=== PATIENT | male | born 1965 | race Caucasian/White ===

== ENCOUNTER 2017-10-17 09:01 | Inpatient (IN) | payer OTHER ==
[2017-10-17 10:17] VITALS: BMI 23.3
--- NOTE | 2017-10-17 11:57 | HP ---
COWS - Scale Resting Pulse: 0= [place] 80 or Below Sweatin=Flushed/Facial Moisture Restless Observation: 1= Difficult to Sit Still Pupil Size: 0= Normal to Room Light Bone or Joint Aches: 2= Severe Diffuse Aches Runny Nose/ Eye Tearin= Runny Nose/Eyes GI Upset > 30mins: 1= Stomach Cramp Tremor Observation: 2= Slight Tremor Visible Yawning Observation: 2= >3x During Session Anxiety or Irritability: 2=Irritable/Anxious Goose Flesh Skin: 3=Piloerection COWS Score: 17 Admission ROS S - HPI Chief Complaint: I need to stop using thang. Allergies/Adverse Reactions: Allergies Allergy/AdvReac Type Severity Reaction Status Date / Time SEAFOOD Allergy Severe Itching Uncoded 10/17/17 10:06 NKDA Allergy Uncoded 10/17/17 10:06 History of Present Illness: pt is a 52yr old male with a history of heroin dependence seeking detox for treatment. Exam Limitations: No Limitations - Ebola screening Have you traveled outside of the country in the last 21 days: No Have you had contact with anyone from an Ebola affected area: No Have you been sick,other than usual withdrawal symptoms: No Do you have a fever: No - Review of Systems Constitutional: Chills, Diaphoresis, Loss of Appetite, Night Sweats, Changes in sleep, Unintentional Wgt. Loss EENT: reports: Tearing, Nose Congestion Respiratory: reports: No Symptoms reported Cardiac: reports: No Symptoms Reported GI: reports: Constipated, Diarrhea, Poor Appetite, Poor Fluid Intake : reports: No Symptoms Reported Musculoskeletal: reports: No Symptoms Reported Integumentary: reports: Flushing Neuro: reports: Tingling, Tremors Endocrine: reports: No Symptoms Reported, Excessive Sweating, Flushing Hematology: reports: No Symptoms Reported Psychiatric: reports: Judgement Intact, Mood/Affect Appropiate, Orientated x3, Agitated, Anxious Other Systems: Reviewed and Negative Patient History - Patient Medical History Hx Anemia: No Hx Asthma: No Hx Chronic Obstructive Pulmonary Disease (COPD): No Hx Cancer: No Hx Cardiac Disorders: No Hx Congestive Heart Failure: No Hx Hypertension: No Hx Hypercholesterolemia: No Hx Pacemaker: No HX Cerebrovascular Accident: No Hx Seizures: No Hx Dementia: No Hx Diabetes: No Hx Gastrointestinal Disorders: No Hx Liver Disease: Yes Hx Genitourinary Disorders: No Hx Sexually Transmitted Disorders: No Hx Renal Disease (ESRD): No Hx Thyroid Disease: No Hx Human Immunodeficiency Virus (HIV): No (denies) Hx Hepatitis C: Yes Hx Depression: No Hx Suicide Attempt: No (denies) Hx Bipolar Disorder: No Hx Schizophrenia: No - Patient Surgical History Past Surgical History: Yes Hx Neurologic Surgery: No Hx Cataract Extraction: No Hx Cardiac Surgery: No Hx Lung Surgery: No Hx Breast Surgery: No Hx Breast Biopsy: No Hx Abdominal Surgery: Yes (bilateral inguinal hernia repair) Hx Appendectomy: No Hx Cholecystectomy: No Hx Genitourinary Surgery: No Hx Section: No Hx Orthopedic Surgery: No Other Surgical History: HERNIA REPAIR-2010 Anesthesia Reaction: No - PPD History Previous Implant?: Yes Documented Results: Negative w/o proof Implanted On Prior R Admission?: Yes PPD to be Administered?: No - Reproductive History Patient is a Female of Child Bearing Age (11 -55 yrs old): No - Smoking Cessation Smoking history: Current every day smoker Have you smoked in the past 12 months: Yes Aproximately how many cigarettes per day: 20 Cigars Per Day: 20 Hx Chewing Tobacco Use: No Initiated information on smoking cessation: Yes 'Breaking Loose' booklet given: 10/17/17 - Substance & Tx. History Hx Alcohol Use: No Hx Substance Use: Yes Substance Use Type: Cocaine, Heroin, Tranquilizers Hx Substance Use Treatment: Yes (last detox [facility] 2012) - Substances Abused Heroin Route: Injection Frequency: Daily Amount used: 10-20 bags Age of first use: 28 Date of Last Use: 10/17/17 Crack Route: Smoking Frequency: Daily Amount used: $50-100 Age of first use: 23 Date of Last Use: 10/17/17 Klonopin Route: Oral Frequency: 1-3 times last 30 days Amount used: 2 mg. Age of first use: 32 Date of Last Use: 10/12/17 Family Disease History - Family Disease History Family Disease History: Diabetes: Father (HTN,CVA,CAD S/P CABG,DEMENTIA), Heart Disease: Father, Other: Father Admission Physical Exam BHS - Vital Signs Vital Signs: Vital Signs - 24 hr 10/17/17 10:15 Temperature 95.6 F L Pulse Rate 50 L Respiratory 20 Rate Blood Pressure 127/67 - Physical General Appearance: Yes: Appropriately Dressed, Moderate Distress, Tremorous, Irritable, Sweating, Anxious HEENTM: Yes: Hearing grossly Normal, Nasal Congestion, Rhinorrhea Respiratory: Yes: Lungs Clear, Normal Breath Sounds, No Respiratory Distress Neck: Yes: No masses,lesions,Nodules Breast: Yes: Within Normal Limits Cardiology: Yes: Regular Rhythm, Regular Rate, S1, S2 Abdominal: Yes: Normal Bowel Sounds, Non Tender, Soft Genitourinary: Yes: Within Normal Limits Back: Yes: Normal Inspection Musculoskeletal: Yes: full range of Motion Extremities: Yes: Normal Capillary Refill, Normal Inspection, Tremors Neurological: Yes: Fully Oriented, Alert, Normal Response, Depressed Affect Integumentary: Yes: Diaphoresis Lymphatic: Yes: Within Normal Limits - Diagnostic (1) Opioid dependence with withdrawal Current Visit: Yes Status: Chronic (2) Cocaine dependence Current Visit: Yes Status: Chronic (3) Hepatitis C carrier Current Visit: Yes Status: Chronic (4) Nicotine dependence Current Visit: Yes Status: Chronic Qualifiers: Nicotine product type: cigarettes Substance use status: uncomplicated Qualified Code(s): F17.210 - Nicotine dependence, cigarettes, uncomplicated Cleared for Admission [facility] - Detox or Rehab [facility] Level of Care: Medically Managed Detox Regimen/Protocol: Methadone [facility] Breath Alcohol Content Breath Alcohol Content: 0 Urine Drug Screen - Results Drug Screen Negative: No Urine Drug Screen Results: YOANDY-Cocaine, OPI-Opiates, MTD-Methadone, OXY- Oxycodone
[2017-10-17] MEDS ORDERED: MAGNESIUM HYDROX 2400MG/30ML ORAL SUSPENSION 30 ML CUP PO PRN (11:59)
[2017-10-17] MEDS ORDERED: guaiFENesin/D-METHORPHAN HB 10 ML UNIT-DOSE CUPS PO PRN (11:59)
[2017-10-17] MEDS ORDERED: ACETAMINOPHEN 325 MG TABLET (FP) PO PRN (11:59)
[2017-10-17] MEDS ORDERED: NICOTINE POLACRILEX 4 MG GUM BUC PRN (11:59)
[2017-10-17] MEDS ORDERED: IBUPROFEN 400 MG TABLET (FP) PO PRN (11:59)
[2017-10-17] MEDS ORDERED: MAGNESIUM CITRATE 300 ML BOTTLE PO PRN (11:59)
[2017-10-17] MEDS ORDERED: MAG HYDROX/AL HYDROX/SIMETH 30 ML UNIT-DOSE CUP PO PRN (11:59)
[2017-10-17] MEDS ORDERED: MENTHOL/PHENOL 1 EACH UD MM PRN (11:59)
[2017-10-17] MEDS ORDERED: P-EPHED 60MG/TRIPROLIDI 2.5MG TABLET PO PRN (11:59)
[2017-10-17] MEDS ORDERED: METHADONE HCL 10 MG TABLET (FOR DETOX USE ONLY) PO ONE ×2 (11:59→23:00)
[2017-10-17] MEDS ORDERED: hydrOXYzine PAMOATE 50 MG CAPSULE (FP) PO PRN (11:59)
[2017-10-17] MEDS ORDERED: LOPERAMIDE HCL 2 MG CAPSULE PO PRN (11:59)
[2017-10-17] MEDS: diazePAM 5 MG TABLET PO PRN ×2 (13:26→22:29)
--- NOTE | 2017-10-17 15:46 | EKG ---
Test Reason : Blood Pressure : / mmHG Vent. Rate : 047 BPM Atrial Rate : 047 BPM P-R Int : 142 ms QRS Dur : 094 ms QT Int : 480 ms P-R-T Axes : 074 062 066 degrees QTc Int : 424 ms SINUS BRADYCARDIA WITH SINUS ARRHYTHMIA OTHERWISE NORMAL ECG NO PREVIOUS ECGS AVAILABLE Confirmed by ASHLIE MARQUEZ, BRUNO ([id number]) on 10/17/2017 3:46:21 PM Referred By: Confirmed By:BRUNO DAILEY MD
[2017-10-17 17:10] LABS: URINE APPEARANCE CLEAR; URINE BILIRUBIN NEGATIVE (NEGATIVE); URINE BLOOD NEGATIVE (NEGATIVE); URINE COLOR LTYELLOW; URINE GLUCOSE (UA) NEGATIVE (NEGATIVE); URINE KETONE NEGATIVE (NEGATIVE); URINE LEUK ESTERASE NEGATIVE (NEGATIVE); URINE NITRITE NEGATIVE (NEGATIVE); URINE PROTEIN NEGATIVE (NEGATIVE); URINE UROBILINOGEN NEGATIVE mg/dL (0.2-1.0)
[2017-10-17] MEDS: THIAMINE HCL 100 MG TABLET (FP) PO SCH (22:26)
[2017-10-18] MEDS ORDERED: METHADONE HCL 10 MG TABLET (FOR DETOX USE ONLY) PO ONE (10:00)
[2017-10-18 10:24] LABS: CHLORIDE 106 mmol/L (98-107); POTASSIUM 4.3 mmol/L (3.5-5.1); SODIUM 140 mmol/L (136-145)
[2017-10-18 10:29] LABS: HEMATOCRIT 37.4 % (35.4-49); MCH 27.9 pg (25.7-33.7); MCHC 32.1 g/dl (32.0-35.9); MEAN CELL VOLUME 86.8 fl (80-96); MEAN PLT VOLUME 9.3 fl (7.5-11.1); PLATELET COUNT 227 K/MM3 (134-434); RBC 4.31 M/mm3 (4.00-5.60); RDW 14.5 % (11.9-15.9); WHITE BLOOD COUNT 6.3 K/mm3 (4.0-10.0)
[2017-10-18] MEDS: PRENATAL VITAMINS W/ FOLIC ACID TABLET (FP) PO SCH (10:32)
[2017-10-18] MEDS: NICOTINE 21 MG/24 HOURS TOPICAL PATCH TD SCH (10:32)
[2017-10-18 10:35] LABS: ALBUMIN 3.6 g/dl (3.4-5.0); ALK PHOS 67 U/L (45-117); ANION GAP 4 (8-16); BILIRUBIN,TOTAL 0.3 mg/dL (0.2-1.0); BLOOD UREA NITROGEN 13 mg/dL (7-18); CALCIUM 8.4 mg/dL (8.5-10.1); CO2 30 mmol/L (21-32); CREATININE 0.7 mg/dL (0.7-1.3); GLUCOSE,RANDOM 83 mg/dL (74-106); SGOT/AST 18 U/L (15-37); SGPT/ALT 19 U/L (12-78); TOT PROT 7.2 g/dl (6.4-8.2)
[2017-10-18] MEDS: diazePAM 5 MG TABLET PO PRN ×3 (10:35→22:26)
--- NOTE | 2017-10-18 12:21 | PN ---
BHS COWS - Scale Resting Pulse: 0= [place] 80 or Below Sweatin= Chills/Flushing Restless Observation: 3= Extraneous Movement Pupil Size: 2= Moderately Dilated Bone or Joint Aches: 4=Acute Joint/Muscle Pain Runny Nose/ Eye Tearin= Nasal Congestion GI Upset > 30mins: 1= Stomach Cramp Tremor Observation of Outstretched Hands: 2= Slight Tremor Visible Yawning Observation: 1= 1-2x During Session Anxiety or Irritability: 2=Irritable/Anxious Goose Flesh Skin: 0=Smooth Skin COWS Score: 17 BHS Progress Note (SOAP) Subjective: ANXIETY,SWEATS,IRRITABILITY, INTERMITTENT SLEEP. Objective: 10/18/17 12:25 Vital Signs Temperature 96.2 F L 10/18/17 09:33 Pulse Rate 58 L 10/18/17 09:33 Respiratory Rate 18 10/18/17 09:33 Blood Pressure 142/90 10/18/17 09:33 O2 Sat by Pulse Oximetry (%) Laboratory Last Values WBC 6.3 K/mm3 (4.0-10.0) 10/18/17 06:00 RBC 4.31 M/mm3 (4.00-5.60) 10/18/17 06:00 Hgb 12.0 GM/dL (11.7-16.9) 10/18/17 06:00 Hct 37.4 % (35.4-49) 10/18/17 06:00 MCV 86.8 fl (80-96) 10/18/17 06:00 MCH 27.9 pg (25.7-33.7) 10/18/17 06:00 MCHC 32.1 g/dl (32.0-35.9) 10/18/17 06:00 RDW 14.5 % (11.9-15.9) 10/18/17 06:00 Plt Count 227 K/MM3 (134-434) D 10/18/17 06:00 MPV 9.3 fl (7.5-11.1) 10/18/17 06:00 Sodium 140 mmol/L (136-145) 10/18/17 06:00 Potassium 4.3 mmol/L (3.5-5.1) 10/18/17 06:00 Chloride 106 mmol/L (98-107) 10/18/17 06:00 Carbon Dioxide 30 mmol/L (21-32) 10/18/17 06:00 Anion Gap 4 (8-16) L 10/18/17 06:00 BUN 13 mg/dL (7-18) 10/18/17 06:00 Creatinine 0.7 mg/dL (0.7-1.3) 10/18/17 06:00 Creat Clearance w eGFR > 60 (>60) 10/18/17 06:00 Random Glucose 83 mg/dL (74-106) 10/18/17 06:00 Calcium 8.4 mg/dL (8.5-10.1) L 10/18/17 06:00 Total Bilirubin 0.3 mg/dL (0.2-1.0) D 10/18/17 06:00 AST 18 U/L (15-37) 10/18/17 06:00 ALT 19 U/L (12-78) D 10/18/17 06:00 Alkaline Phosphatase 67 U/L (45-117) 10/18/17 06:00 Total Protein 7.2 g/dl (6.4-8.2) 10/18/17 06:00 Albumin 3.6 g/dl (3.4-5.0) 10/18/17 06:00 Urine Color Ltyellow 10/17/17 15:50 Urine Appearance Clear 10/17/17 15:50 Urine pH 5.0 (5.0-8.0) 10/17/17 15:50 Ur Specific [place] 1.023 (1.001-1.035) 10/17/17 15:50 Urine Protein Negative (NEGATIVE) 10/17/17 15:50 Urine Glucose (UA) Negative (NEGATIVE) 10/17/17 15:50 Urine Ketones Negative (NEGATIVE) 10/17/17 15:50 Urine Blood Negative (NEGATIVE) 10/17/17 15:50 Urine Nitrite Negative (NEGATIVE) 10/17/17 15:50 Urine Bilirubin Negative (NEGATIVE) 10/17/17 15:50 Urine Urobilinogen Negative mg/dL (0.2-1.0) 10/17/17 15:50 Ur Leukocyte Esterase Negative (NEGATIVE) 10/17/17 15:50 HIV 1&2 Antibody Screen Negative 10/17/17 12:00 HIV P24 Antigen Negative 10/17/17 12:00 Assessment: 10/18/17 12:25 WITHDRAWAL SX Plan: CONTINUE DETOX
[2017-10-18] MEDS: THIAMINE HCL 100 MG TABLET (FP) PO SCH (22:26)
[2017-10-19] MEDS: diazePAM 5 MG TABLET PO PRN (09:30)
[2017-10-19] MEDS ORDERED: METHADONE HCL 5 MG TABLET (FOR DETOX USE ONLY) PO ONE (10:00)
[2017-10-19] MEDS: NICOTINE 21 MG/24 HOURS TOPICAL PATCH TD SCH (10:23)
[2017-10-19] MEDS: PRENATAL VITAMINS W/ FOLIC ACID TABLET (FP) PO SCH (10:23)
[2017-10-19] MEDS ORDERED: ONDANSETRON *ODT* 4 MG TABLET SL PRN (11:00)
--- NOTE | 2017-10-19 11:46 | PN ---
BHS COWS - Scale Resting Pulse: 0= [place] 80 or Below Sweatin= Chills/Flushing Restless Observation: 3= Extraneous Movement Pupil Size: 2= Moderately Dilated Bone or Joint Aches: 4=Acute Joint/Muscle Pain Runny Nose/ Eye Tearin= None GI Upset > 30mins: 1= Stomach Cramp Tremor Observation of Outstretched Hands: 1= Tremor [place], Not Seen Yawning Observation: 1= 1-2x During Session Anxiety or Irritability: 2=Irritable/Anxious Goose Flesh Skin: 0=Smooth Skin COWS Score: 15 BHS Progress Note (SOAP) Subjective: ANXIETY,SWEATS,TREMORS,NAUSEA/VOMITING,INTERMITTENT SLEEP Objective: 10/19/17 11:43 Vital Signs Temperature 97.0 F L 10/19/17 10:12 Pulse Rate 72 10/19/17 10:12 Respiratory Rate 18 10/19/17 10:12 Blood Pressure 161/103 10/19/17 10:12 O2 Sat by Pulse Oximetry (%) Laboratory Last Values WBC 6.3 K/mm3 (4.0-10.0) 10/18/17 06:00 RBC 4.31 M/mm3 (4.00-5.60) 10/18/17 06:00 Hgb 12.0 GM/dL (11.7-16.9) 10/18/17 06:00 Hct 37.4 % (35.4-49) 10/18/17 06:00 MCV 86.8 fl (80-96) 10/18/17 06:00 MCH 27.9 pg (25.7-33.7) 10/18/17 06:00 MCHC 32.1 g/dl (32.0-35.9) 10/18/17 06:00 RDW 14.5 % (11.9-15.9) 10/18/17 06:00 Plt Count 227 K/MM3 (134-434) D 10/18/17 06:00 MPV 9.3 fl (7.5-11.1) 10/18/17 06:00 Sodium 140 mmol/L (136-145) 10/18/17 06:00 Potassium 4.3 mmol/L (3.5-5.1) 10/18/17 06:00 Chloride 106 mmol/L (98-107) 10/18/17 06:00 Carbon Dioxide 30 mmol/L (21-32) 10/18/17 06:00 Anion Gap 4 (8-16) L 10/18/17 06:00 BUN 13 mg/dL (7-18) 10/18/17 06:00 Creatinine 0.7 mg/dL (0.7-1.3) 10/18/17 06:00 Creat Clearance w eGFR > 60 (>60) 10/18/17 06:00 Random Glucose 83 mg/dL (74-106) 10/18/17 06:00 Calcium 8.4 mg/dL (8.5-10.1) L 10/18/17 06:00 Total Bilirubin 0.3 mg/dL (0.2-1.0) D 10/18/17 06:00 AST 18 U/L (15-37) 10/18/17 06:00 ALT 19 U/L (12-78) D 10/18/17 06:00 Alkaline Phosphatase 67 U/L (45-117) 10/18/17 06:00 Total Protein 7.2 g/dl (6.4-8.2) 10/18/17 06:00 Albumin 3.6 g/dl (3.4-5.0) 10/18/17 06:00 Urine Color Ltyellow 10/17/17 15:50 Urine Appearance Clear 10/17/17 15:50 Urine pH 5.0 (5.0-8.0) 10/17/17 15:50 Ur Specific [place] 1.023 (1.001-1.035) 10/17/17 15:50 Urine Protein Negative (NEGATIVE) 10/17/17 15:50 Urine Glucose (UA) Negative (NEGATIVE) 10/17/17 15:50 Urine Ketones Negative (NEGATIVE) 10/17/17 15:50 Urine Blood Negative (NEGATIVE) 10/17/17 15:50 Urine Nitrite Negative (NEGATIVE) 10/17/17 15:50 Urine Bilirubin Negative (NEGATIVE) 10/17/17 15:50 Urine Urobilinogen Negative mg/dL (0.2-1.0) 10/17/17 15:50 Ur Leukocyte Esterase Negative (NEGATIVE) 10/17/17 15:50 RPR Titer Nonreactive (NONREACTIVE) 10/18/17 06:00 HIV 1&2 Antibody Screen Negative 10/17/17 12:00 HIV P24 Antigen Negative 10/17/17 12:00 Assessment: 10/19/17 11:45 WITHDRAWAL SX Plan: CONTINUE DETOX
[2017-10-19 14:19] VITALS: BP 146/102; PULSE 75; TEMP 97.3
--- NOTE | 2017-10-19 19:21 | DS ---
[facility] Detox Discharge Summary Admission Date: 10/17/17 Discharge Date: 10/19/17 - History Present History: Alcohol Dependence, Cocaine Dependence, Opioid Dependence Additional Comments: PT SIGNED OUT AMA. Pertinent Past History: SEE DX BELOW - Physical Exam Results Vital Signs: Vital Signs Temperature 97.3 F L 10/19/17 14:18 Pulse Rate 75 10/19/17 14:18 Respiratory Rate 18 10/19/17 14:18 Blood Pressure 146/102 10/19/17 14:18 O2 Sat by Pulse Oximetry (%) Pertinent Admission Physical Exam Findings: WITHDRAWAL SX Laboratory Last Values WBC 6.3 K/mm3 (4.0-10.0) 10/18/17 06:00 RBC 4.31 M/mm3 (4.00-5.60) 10/18/17 06:00 Hgb 12.0 GM/dL (11.7-16.9) 10/18/17 06:00 Hct 37.4 % (35.4-49) 10/18/17 06:00 MCV 86.8 fl (80-96) 10/18/17 06:00 MCH 27.9 pg (25.7-33.7) 10/18/17 06:00 MCHC 32.1 g/dl (32.0-35.9) 10/18/17 06:00 RDW 14.5 % (11.9-15.9) 10/18/17 06:00 Plt Count 227 K/MM3 (134-434) D 10/18/17 06:00 MPV 9.3 fl (7.5-11.1) 10/18/17 06:00 Sodium 140 mmol/L (136-145) 10/18/17 06:00 Potassium 4.3 mmol/L (3.5-5.1) 10/18/17 06:00 Chloride 106 mmol/L (98-107) 10/18/17 06:00 Carbon Dioxide 30 mmol/L (21-32) 10/18/17 06:00 Anion Gap 4 (8-16) L 10/18/17 06:00 BUN 13 mg/dL (7-18) 10/18/17 06:00 Creatinine 0.7 mg/dL (0.7-1.3) 10/18/17 06:00 Creat Clearance w eGFR > 60 (>60) 10/18/17 06:00 Random Glucose 83 mg/dL (74-106) 10/18/17 06:00 Calcium 8.4 mg/dL (8.5-10.1) L 10/18/17 06:00 Total Bilirubin 0.3 mg/dL (0.2-1.0) D 10/18/17 06:00 AST 18 U/L (15-37) 10/18/17 06:00 ALT 19 U/L (12-78) D 10/18/17 06:00 Alkaline Phosphatase 67 U/L (45-117) 10/18/17 06:00 Total Protein 7.2 g/dl (6.4-8.2) 10/18/17 06:00 Albumin 3.6 g/dl (3.4-5.0) 10/18/17 06:00 Urine Color Ltyellow 10/17/17 15:50 Urine Appearance Clear 10/17/17 15:50 Urine pH 5.0 (5.0-8.0) 10/17/17 15:50 Ur Specific [place] 1.023 (1.001-1.035) 10/17/17 15:50 Urine Protein Negative (NEGATIVE) 10/17/17 15:50 Urine Glucose (UA) Negative (NEGATIVE) 10/17/17 15:50 Urine Ketones Negative (NEGATIVE) 10/17/17 15:50 Urine Blood Negative (NEGATIVE) 10/17/17 15:50 Urine Nitrite Negative (NEGATIVE) 10/17/17 15:50 Urine Bilirubin Negative (NEGATIVE) 10/17/17 15:50 Urine Urobilinogen Negative mg/dL (0.2-1.0) 10/17/17 15:50 Ur Leukocyte Esterase Negative (NEGATIVE) 10/17/17 15:50 RPR Titer Nonreactive (NONREACTIVE) 10/18/17 06:00 HIV 1&2 Antibody Screen Negative 10/17/17 12:00 HIV P24 Antigen Negative 10/17/17 12:00 - Treatment Hospital Course: Discharged Condition Good - Medication Discharge Medications: Ambulatory Orders NK [No Known Home Medication] 10/17/17 - Diagnosis (1) Hepatitis C carrier Status: Chronic (2) Nicotine dependence Status: Acute Qualifiers: Nicotine product type: cigarettes Substance use status: in withdrawal Qualified Code(s): F17.213 - Nicotine dependence, cigarettes, with withdrawal (3) Opioid dependence with withdrawal Status: Acute (4) Seizure Status: Suspected (5) Cocaine dependence, uncomplicated Status: Acute - AMA Did Patient Leave Against Medical Advice: Yes (AMA)
[2017-10-20] MEDS ORDERED: METHADONE HCL 5 MG TABLET (FOR DETOX USE ONLY) PO ONE (10:00)
[2017-10-21] MEDS ORDERED: METHADONE HCL 10 MG TABLET (FOR DETOX USE ONLY) PO ONE (10:00)
[2017-10-22] MEDS ORDERED: METHADONE HCL 5 MG TABLET (FOR DETOX USE ONLY) PO ONE (06:00)
== END 2017-10-19 15:13 | disposition left against medical advice (07) | DRG 770 ==
LOC: YASAS 09:01 → Y3N 11:41
PROVIDERS: ADMIT Internal Medicine; ATTEND Internal Medicine
PROC: HZ2ZZZZ Detoxification Services for Substance Abuse Treatment (ICD-10-PCS; principal; 2017-10-17)
DX: F11.23 Opioid dependence with withdrawal (principal); F14.20 Cocaine dependence, uncomplicated; F17.213 Nicotine dependence, cigarettes, with withdrawal; B18.2 Chronic viral hepatitis C; Z86.69 Personal history of other diseases of the nervous system and sense organs; Z91.013 Allergy to seafood
CPT/HCPCS: 36415; 80053; 81003; 85027; 86593; 87389; 93005; 93010

== ENCOUNTER 2017-12-06 11:45 | Inpatient (IN) | payer OTHER ==
[2017-12-06 12:59] VITALS: BMI 22.1
--- NOTE | 2017-12-06 14:57 | HP ---
COWS - Scale Resting Pulse: 0= [place] 80 or Below Sweatin=Flushed/Facial Moisture Restless Observation: 3= Extraneous Movement Pupil Size: 2= Moderately Dilated Bone or Joint Aches: 2= Severe Diffuse Aches Runny Nose/ Eye Tearin= Runny Nose/Eyes GI Upset > 30mins: 3= Vomiting/Diarrhea Tremor Observation: 2= Slight Tremor Visible Yawning Observation: 2= >3x During Session Anxiety or Irritability: 2=Irritable/Anxious Goose Flesh Skin: 0=Smooth Skin COWS Score: 20 Admission ROS S - HPI Chief Complaint: i nee help to stop using heroin,crack and klonopin Allergies/Adverse Reactions: Allergies Allergy/AdvReac Type Severity Reaction Status Date / Time No Known Drug Allergies Allergy Unknown Verified 12/06/17 14:23 SEAFOOD Allergy Severe Itching Uncoded 12/06/17 14:23 NKDA Allergy Uncoded 12/06/17 14:23 History of Present Illness: tTHIS 52 YEARS OLD MALE WITH HEROIN,CRACK,KLONOPIN DEPENDENCE SEEKING DETOX, WITHDRAWAL SYMPTOM,LAST DETOX [facility] 10/17/17 TO 10/19/17 NOT COMPLETED SEEN IN [facility] FOR FURUNCULITIS BOTH BUTTOCKS ON ANTIBIOTIC THREE TIMES A DAY SINCE 11/30 AND BACITRACIN OINTMENT WEIGHT LOSS HEPATITIS C SINCE 1989 FOLLOW UP WITH PMD NICOTINE DEPENDENCE LONGEST PERIOD OF SOBRIETY 6 MONTHS - Ebola screening Have you traveled outside of the country in the last 21 days: No Have you had contact with anyone from an Ebola affected area: No Have you been sick,other than usual withdrawal symptoms: No - Review of Systems Constitutional: Chills, Loss of Appetite, Malaise, Night Sweats, Changes in sleep, Weakness, Unintentional Wgt. Loss EENT: reports: Tearing, Nose Congestion Respiratory: reports: No Symptoms reported Cardiac: reports: No Symptoms Reported GI: reports: Diarrhea, Nausea, Vomiting, Abdominal cramping : reports: No Symptoms Reported Musculoskeletal: reports: Back Pain, Joint Pain, Muscle Pain, Joint Stiffness Integumentary: reports: Dryness Neuro: reports: Headache, Tremors Endocrine: reports: No Symptoms Reported Hematology: reports: No Symptoms Reported Psychiatric: reports: No Sypmtoms Reported, Judgement Intact, Mood/Affect Appropiate, Orientated x3 Patient History - Patient Medical History Hx Anemia: No Hx Asthma: No Hx Chronic Obstructive Pulmonary Disease (COPD): No Hx Cancer: No Hx Cardiac Disorders: No Hx Congestive Heart Failure: No Hx Hypertension: No Hx Hypercholesterolemia: No Hx Pacemaker: No HX Cerebrovascular Accident: No Hx Seizures: No Hx Dementia: No Hx Diabetes: No Hx Gastrointestinal Disorders: No Hx Liver Disease: Yes Hx Genitourinary Disorders: No Hx Sexually Transmitted Disorders: No Hx Renal Disease (ESRD): No Hx Thyroid Disease: No Hx Human Immunodeficiency Virus (HIV): No (LAST 11/25 NEGATIVE) Hx Hepatitis C: Yes (FOLLOW UP WITH PMD AT [facility]) Hx Depression: No Hx Suicide Attempt: No (denies) Hx Bipolar Disorder: No Hx Schizophrenia: No Other Medical History: NO SUICIDAL,NO HOMICIDAL - Patient Surgical History Past Surgical History: Yes Hx Neurologic Surgery: No Hx Cataract Extraction: No Hx Cardiac Surgery: No Hx Lung Surgery: No Hx Breast Surgery: No Hx Breast Biopsy: No Hx Abdominal Surgery: Yes (bilateral inguinal hernia repair) Hx Appendectomy: No Hx Cholecystectomy: No Hx Genitourinary Surgery: No Hx Section: No Hx Orthopedic Surgery: No Other Surgical History: HERNIA REPAIR-2009 Anesthesia Reaction: No - PPD History Previous Implant?: Yes Documented Results: Negative w/proof Date: 10/19/17 Results: 00mm - Smoking Cessation Smoking history: Current every day smoker Have you smoked in the past 12 months: Yes Aproximately how many cigarettes per day: 20 Cigars Per Day: 20 Hx Chewing Tobacco Use: No Initiated information on smoking cessation: Yes 'Breaking Loose' booklet given: 12/06/17 - Substance & Tx. History Hx Alcohol Use: No Hx Substance Use: Yes Substance Use Type: Cocaine, Heroin - Substances Abused Heroin Route: Injection Frequency: Daily Amount used: 2 BUNDLE Age of first use: 28 Date of Last Use: 12/06/17 Crack Route: Smoking Frequency: Daily Amount used: 1 BAG Age of first use: 23 Date of Last Use: 12/06/17 Benzodiazepine (Klonopin) Route: Oral Frequency: 1-3 times last 30 days Amount used: 2-3 2MG Age of first use: 42 Date of Last Use: 12/06/17 Family Disease History - Family Disease History Family Disease History: Diabetes: Father (HTN,CVA,CAD S/P CABG,DEMENTIA), Heart Disease: Father, Other: Father Admission Physical Exam [facility] - Vital Signs Vital Signs: Vital Signs - 24 hr 12/06/17 12:54 Temperature 97.8 F Pulse Rate 75 Respiratory 20 Rate Blood Pressure 118/77 - Physical General Appearance: Yes: Moderate Distress, Tremorous, Irritable, Sweating, Anxious HEENTM: Yes: Normal ENT Inspection, JACINDA, Pharynx Normal Respiratory: Yes: Lungs Clear, Normal Breath Sounds, No Respiratory Distress Neck: Yes: Within Normal Limits, Supple, Trachea in good position Breast: Yes: Within Normal Limits Cardiology: Yes: Within Normal Limits, Regular Rhythm, Regular Rate, S1, S2 Abdominal: Yes: Within Normal Limits, Normal Bowel Sounds, Non Tender, Flat, Soft Genitourinary: Yes: Within Normal Limits Back: Yes: Muscle Spasm Musculoskeletal: Yes: full range of Motion, Back pain, Joint Stiffness, Muscle Pain Extremities: Yes: Within Normal Limits, Normal Range of Motion, Tremors Neurological: Yes: associate programmer analyst II-XII NML intact, Alert, Motor Strength 5/5, Normal Mood /Affect Integumentary: Yes: Dry, Other Lymphatic: Yes: Within Normal Limits - Diagnostic (1) Opioid dependence with withdrawal Current Visit: No Status: Acute (2) Uncomplicated sedative, hypnotic or anxiolytic withdrawal Current Visit: Yes Status: Acute (3) Cocaine dependence, uncomplicated Current Visit: No Status: Acute (4) Weight loss Current Visit: Yes Status: Acute (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 (6) Nicotine dependence Current Visit: No Status: Acute Qualifiers: Nicotine product type: cigarettes Substance use status: in withdrawal Qualified Code(s): F17.213 - Nicotine dependence, cigarettes, with withdrawal (7) Hepatitis C carrier Current Visit: No Status: Chronic (8) Furunculosis of buttock Current Visit: Yes Status: Acute Cleared for Admission [facility] - Detox or Rehab [facility] Level of Care: Medically Managed Detox Regimen/Protocol: Methadone [facility] Breath Alcohol Content Breath Alcohol Content: 0 Urine Drug Screen - Results Drug Screen Negative: No Urine Drug Screen Results: YOANDY-Cocaine, OPI-Opiates, MTD-Methadone
[2017-12-06] MEDS ORDERED: MAG HYDROX/AL HYDROX/SIMETH 30 ML UNIT-DOSE CUP PO PRN (15:13)
[2017-12-06] MEDS ORDERED: MENTHOL/PHENOL 1 EACH UD MM PRN (15:13)
[2017-12-06] MEDS ORDERED: IBUPROFEN 400 MG TABLET (FP) PO PRN (15:13)
[2017-12-06] MEDS ORDERED: guaiFENesin/D-METHORPHAN HB 10 ML UNIT-DOSE CUPS PO PRN (15:13)
[2017-12-06] MEDS ORDERED: MAGNESIUM HYDROX 2400MG/30ML ORAL SUSPENSION 30 ML CUP PO PRN (15:13)
[2017-12-06] MEDS ORDERED: hydrOXYzine PAMOATE 50 MG CAPSULE (FP) PO PRN (15:13)
[2017-12-06] MEDS ORDERED: P-EPHED 60MG/TRIPROLIDI 2.5MG TABLET PO PRN (15:13)
[2017-12-06] MEDS ORDERED: ACETAMINOPHEN 325 MG TABLET (FP) PO PRN (15:13)
[2017-12-06] MEDS ORDERED: METHADONE HCL 10 MG TABLET (FOR DETOX USE ONLY) PO ONE ×2 (15:13→23:00)
[2017-12-06] MEDS ORDERED: MAGNESIUM CITRATE 300 ML BOTTLE PO PRN (15:13)
[2017-12-06] MEDS ORDERED: LOPERAMIDE HCL 2 MG CAPSULE PO PRN (15:13)
[2017-12-06] MEDS: CEPHALEXIN MONOHYDRATE 500 MG CAPSULE (UD) PO SCH ×2 (17:03→23:04)
[2017-12-06] MEDS: CYCLOBENZAPRINE HCL 10 MG TABLET (FP) PO PRN (17:03)
[2017-12-06] MEDS: diazePAM 5 MG TABLET PO PRN ×2 (17:03→23:07)
[2017-12-06] MEDS: NICOTINE 21 MG/24 HOURS TOPICAL PATCH TD SCH (17:05)
[2017-12-06] MEDS ORDERED: MELATONIN 5 MG TABLETS PO PRN (22:00)
[2017-12-06] MEDS: THIAMINE HCL 100 MG TABLET (FP) PO SCH (23:04)
[2017-12-06] MEDS: cloNIDine HCL 0.1 MG TABLET PO SCH (23:05)
[2017-12-06] MEDS: BACITRACIN 15 GM TUBE TOPICAL OINTMENT TP SCH (23:07)
[2017-12-07 01:34] LABS: URINE APPEARANCE TURBID; URINE BILIRUBIN NEGATIVE (<2.0 mg/dL); URINE BLOOD NEGATIVE (NEGATIVE); URINE GLUCOSE (UA) NEGATIVE (NEGATIVE); URINE KETONE TRACE (NEGATIVE); URINE LEUK ESTERASE NEGATIVE (NEGATIVE); URINE NITRITE NEGATIVE (NEGATIVE); URINE PROTEIN NEGATIVE (NEGATIVE)
[2017-12-07 01:44] LABS: URINE COLOR YELLOW
[2017-12-07] MEDS: CEPHALEXIN MONOHYDRATE 500 MG CAPSULE (UD) PO SCH ×3 (07:50→22:39)
[2017-12-07] MEDS ORDERED: METHADONE HCL 10 MG TABLET (FOR DETOX USE ONLY) PO ONE (10:00)
--- NOTE | 2017-12-07 10:09 | EKG ---
Test Reason : Blood Pressure : / mmHG Vent. Rate : 063 BPM Atrial Rate : 063 BPM P-R Int : 142 ms QRS Dur : 092 ms QT Int : 426 ms P-R-T Axes : 076 069 072 degrees QTc Int : 435 ms NORMAL SINUS RHYTHM NON-SPECIFIC INTRA-VENTRICULAR CONDUCTION DELAY WHEN COMPARED WITH ECG OF 17-OCT-2017 13:17, NO SIGNIFICANT CHANGE WAS FOUND Confirmed by ALFREDO ZHANG MD ([id number]) on 12/07/2017 10:08:53 AM Referred By: Confirmed By:ALFREDO ZHANG MD
[2017-12-07 10:20] LABS: HEMATOCRIT 37.6 % (35.4-49); HEMOGLOBIN 12.4 GM/dL (11.7-16.9); MCH 29.1 pg (25.7-33.7); MEAN PLT VOLUME 8.8 fl (7.5-11.1); PLATELET COUNT 191 K/MM3 (134-434); RBC 4.27 M/mm3 (4.00-5.60); WHITE BLOOD COUNT 3.7 K/mm3 (4.0-10.0)
[2017-12-07 10:26] LABS: ALBUMIN 3.6 g/dl (3.4-5.0); ANION GAP 5 (8-16); BILIRUBIN,TOTAL 0.3 mg/dL (0.2-1.0); BLOOD UREA NITROGEN 15 mg/dL (7-18); CHLORIDE 106 mmol/L (98-107); CO2 31 mmol/L (21-32); CREATININE 0.9 mg/dL (0.7-1.3); GLUCOSE,RANDOM 96 mg/dL (74-106); POTASSIUM 4.8 mmol/L (3.5-5.1); SGOT/AST 23 U/L (15-37); SGPT/ALT 27 U/L (12-78); SODIUM 142 mmol/L (136-145); TOT PROT 7.6 g/dl (6.4-8.2)
[2017-12-07 10:27] LABS: ALK PHOS 71 U/L (45-117)
[2017-12-07] MEDS: PRENATAL VITAMINS W/ FOLIC ACID TABLET (FP) PO SCH (10:28)
[2017-12-07] MEDS: BACITRACIN 15 GM TUBE TOPICAL OINTMENT TP SCH ×2 (10:28→23:24)
[2017-12-07] MEDS: NICOTINE 21 MG/24 HOURS TOPICAL PATCH TD SCH (10:29)
[2017-12-07] MEDS: cloNIDine HCL 0.1 MG TABLET PO SCH ×2 (10:29→22:39)
[2017-12-07] MEDS: diazePAM 5 MG TABLET PO PRN ×3 (10:31→22:42)
--- NOTE | 2017-12-07 13:29 | PN ---
[facility] CIWA - CIWA Score Nausea/Vomitin Muscle Tremors: 3 Anxiety: 3 Agitation: 3 Paroxysmal Sweats: 1-Minimal Palms Moist Orientation: 0-Oriented Tacttile Disturbances: 1-Very Mild Itch/Numbness Auditory Disturbances: 1-Very Mild Visual Disturbances: 1-Very Mild Sensitivity Headache: 2-Mild CIWA-Ar Total Score: 18 BHS COWS - Scale Resting Pulse: 0= [place] 80 or Below Sweatin= Chills/Flushing Restless Observation: 3= Extraneous Movement Pupil Size: 2= Moderately Dilated Bone or Joint Aches: 2= Severe Diffuse Aches Runny Nose/ Eye Tearin= Runny Nose/Eyes GI Upset > 30mins: 3= Vomiting/Diarrhea Tremor Observation of Outstretched Hands: 2= Slight Tremor Visible Yawning Observation: 1= 1-2x During Session Anxiety or Irritability: 2=Irritable/Anxious Goose Flesh Skin: 0=Smooth Skin COWS Score: 18 S Progress Note (SOAP) Subjective: ALERT,IRRITABLE,ANXIOUS,PAIN IN THE BODY AND BACK,TREMOR Objective: 12/07/17 13:27 Vital Signs Temperature 97.7 F 12/07/17 10:00 Pulse Rate 80 12/07/17 10:00 Respiratory Rate 16 12/07/17 10:00 Blood Pressure 139/73 12/07/17 10:00 O2 Sat by Pulse Oximetry (%) 12/07/17 13:28 EKG NSR,NORMAL ECG Laboratory Last Values WBC 3.7 K/mm3 (4.0-10.0) L D 12/07/17 08:00 RBC 4.27 M/mm3 (4.00-5.60) 12/07/17 08:00 Hgb 12.4 GM/dL (11.7-16.9) 12/07/17 08:00 Hct 37.6 % (35.4-49) 12/07/17 08:00 MCV 88.0 fl (80-96) 12/07/17 08:00 MCH 29.1 pg (25.7-33.7) 12/07/17 08:00 MCHC 33.0 g/dl (32.0-35.9) 12/07/17 08:00 RDW 15.0 % (11.9-15.9) 12/07/17 08:00 Plt Count 191 K/MM3 (134-434) 12/07/17 08:00 MPV 8.8 fl (7.5-11.1) 12/07/17 08:00 Sodium 142 mmol/L (136-145) 12/07/17 08:00 Potassium 4.8 mmol/L (3.5-5.1) 12/07/17 08:00 Chloride 106 mmol/L (98-107) 12/07/17 08:00 Carbon Dioxide 31 mmol/L (21-32) 12/07/17 08:00 Anion Gap 5 (8-16) L 12/07/17 08:00 BUN 15 mg/dL (7-18) 12/07/17 08:00 Creatinine 0.9 mg/dL (0.7-1.3) D 12/07/17 08:00 Creat Clearance w eGFR > 60 (>60) 12/07/17 08:00 Random Glucose 96 mg/dL (74-106) 12/07/17 08:00 Calcium 9.0 mg/dL (8.5-10.1) 12/07/17 08:00 Total Bilirubin 0.3 mg/dL (0.2-1.0) 12/07/17 08:00 AST 23 U/L (15-37) D 12/07/17 08:00 ALT 27 U/L (12-78) D 12/07/17 08:00 Alkaline Phosphatase 71 U/L (45-117) 12/07/17 08:00 Total Protein 7.6 g/dl (6.4-8.2) 12/07/17 08:00 Albumin 3.6 g/dl (3.4-5.0) 12/07/17 08:00 Urine Color Yellow 12/07/17 00:28 Urine Appearance Turbid 12/07/17 00:28 Urine pH 5.0 (5.0-8.0) 12/07/17 00:28 Ur Specific [place] 1.031 (1.001-1.035) 12/07/17 00:28 Urine Protein Negative (NEGATIVE) 12/07/17 00:28 Urine Glucose (UA) Negative (NEGATIVE) 12/07/17 00:28 Urine Ketones Trace (NEGATIVE) H 12/07/17 00:28 Urine Blood Negative (NEGATIVE) 12/07/17 00:28 Urine Nitrite Negative (NEGATIVE) 12/07/17 00:28 Urine Bilirubin Negative (<2.0 mg/dL) 12/07/17 00:28 Urine Urobilinogen 2.0 mg/dL (0.2-1.0) 12/07/17 00:28 Ur Leukocyte Esterase Negative (NEGATIVE) 12/07/17 00:28 RPR Titer Nonreactive (NONREACTIVE) 12/07/17 08:00 Assessment: 12/07/17 13:29 WITHDRAWAL SYMPTOM Plan: CONTINUE DETOX
[2017-12-07] MEDS: THIAMINE HCL 100 MG TABLET (FP) PO SCH (22:39)
[2017-12-07] MEDS: CYCLOBENZAPRINE HCL 10 MG TABLET (FP) PO PRN (22:39)
[2017-12-08] MEDS: CEPHALEXIN MONOHYDRATE 500 MG CAPSULE (UD) PO SCH (05:34)
[2017-12-08] MEDS: diazePAM 5 MG TABLET PO PRN ×2 (05:35→11:00)
[2017-12-08] MEDS ORDERED: METHADONE HCL 5 MG TABLET (FOR DETOX USE ONLY) PO ONE (10:00)
[2017-12-08] MEDS: PRENATAL VITAMINS W/ FOLIC ACID TABLET (FP) PO SCH (11:00)
[2017-12-08] MEDS: CYCLOBENZAPRINE HCL 10 MG TABLET (FP) PO PRN (11:00)
[2017-12-08] MEDS: cloNIDine HCL 0.1 MG TABLET PO SCH (11:00)
[2017-12-08] MEDS: BACITRACIN 15 GM TUBE TOPICAL OINTMENT TP SCH (11:01)
[2017-12-08 11:19] VITALS: BP 113/65; PULSE 78; TEMP 97.3
--- NOTE | 2017-12-08 11:59 | PN ---
S CIWA - CIWA Score Nausea/Vomitin Muscle Tremors: 3 Anxiety: 3 Agitation: 3 Paroxysmal Sweats: 1-Minimal Palms Moist Orientation: 0-Oriented Tacttile Disturbances: 1-Very Mild Itch/Numbness Auditory Disturbances: 1-Very Mild Visual Disturbances: 0-None Headache: 2-Mild CIWA-Ar Total Score: 17 BHS COWS - Scale Resting Pulse: 0= [place] 80 or Below Sweatin= Chills/Flushing Restless Observation: 3= Extraneous Movement Pupil Size: 1= Pupils >than Normal Bone or Joint Aches: 2= Severe Diffuse Aches Runny Nose/ Eye Tearin= Runny Nose/Eyes GI Upset > 30mins: 2= Nausea/Diarrhea Tremor Observation of Outstretched Hands: 2= Slight Tremor Visible Yawning Observation: 1= 1-2x During Session Anxiety or Irritability: 2=Irritable/Anxious Goose Flesh Skin: 0=Smooth Skin COWS Score: 16 S Progress Note (SOAP) Subjective: ALERT,IRRITABLE,ANXIOUS,INTERRUPTED SLEEP,TREMOR,PAIN IN THE BODY AND BACK Objective: 12/08/17 12:04 Vital Signs Temperature 97.3 F L 12/08/17 11:19 Pulse Rate 78 12/08/17 11:19 Respiratory Rate 18 12/08/17 11:19 Blood Pressure 113/65 12/08/17 11:19 O2 Sat by Pulse Oximetry (%) Laboratory Last Values WBC 3.7 K/mm3 (4.0-10.0) L D 12/07/17 08:00 RBC 4.27 M/mm3 (4.00-5.60) 12/07/17 08:00 Hgb 12.4 GM/dL (11.7-16.9) 12/07/17 08:00 Hct 37.6 % (35.4-49) 12/07/17 08:00 MCV 88.0 fl (80-96) 12/07/17 08:00 MCH 29.1 pg (25.7-33.7) 12/07/17 08:00 MCHC 33.0 g/dl (32.0-35.9) 12/07/17 08:00 RDW 15.0 % (11.9-15.9) 12/07/17 08:00 Plt Count 191 K/MM3 (134-434) 12/07/17 08:00 MPV 8.8 fl (7.5-11.1) 12/07/17 08:00 Sodium 142 mmol/L (136-145) 12/07/17 08:00 Potassium 4.8 mmol/L (3.5-5.1) 12/07/17 08:00 Chloride 106 mmol/L (98-107) 12/07/17 08:00 Carbon Dioxide 31 mmol/L (21-32) 12/07/17 08:00 Anion Gap 5 (8-16) L 12/07/17 08:00 BUN 15 mg/dL (7-18) 12/07/17 08:00 Creatinine 0.9 mg/dL (0.7-1.3) D 12/07/17 08:00 Creat Clearance w eGFR > 60 (>60) 12/07/17 08:00 Random Glucose 96 mg/dL (74-106) 12/07/17 08:00 Calcium 9.0 mg/dL (8.5-10.1) 12/07/17 08:00 Total Bilirubin 0.3 mg/dL (0.2-1.0) 12/07/17 08:00 AST 23 U/L (15-37) D 12/07/17 08:00 ALT 27 U/L (12-78) D 12/07/17 08:00 Alkaline Phosphatase 71 U/L (45-117) 12/07/17 08:00 Total Protein 7.6 g/dl (6.4-8.2) 12/07/17 08:00 Albumin 3.6 g/dl (3.4-5.0) 12/07/17 08:00 Urine Color Yellow 12/07/17 00:28 Urine Appearance Turbid 12/07/17 00:28 Urine pH 5.0 (5.0-8.0) 12/07/17 00:28 Ur Specific [place] 1.031 (1.001-1.035) 12/07/17 00:28 Urine Protein Negative (NEGATIVE) 12/07/17 00:28 Urine Glucose (UA) Negative (NEGATIVE) 12/07/17 00:28 Urine Ketones Trace (NEGATIVE) H 12/07/17 00:28 Urine Blood Negative (NEGATIVE) 12/07/17 00:28 Urine Nitrite Negative (NEGATIVE) 12/07/17 00:28 Urine Bilirubin Negative (<2.0 mg/dL) 12/07/17 00:28 Urine Urobilinogen 2.0 mg/dL (0.2-1.0) 12/07/17 00:28 Ur Leukocyte Esterase Negative (NEGATIVE) 12/07/17 00:28 RPR Titer Nonreactive (NONREACTIVE) 12/07/17 08:00 Assessment: 12/08/17 12:04 WITHDRAWAL SYMPTOM Plan: CONTINUE DETOX
[2017-12-08] MEDS: NICOTINE 21 MG/24 HOURS TOPICAL PATCH TD SCH (12:04)
--- NOTE | 2017-12-08 12:09 | DS ---
[facility] Detox Discharge Summary Admission Date: 12/06/17 Discharge Date: 12/08/17 - History Present History: Alcohol Dependence, Cocaine Dependence, Opioid Dependence Additional Comments: PATIENT DID NOT WANT TO COMPLETE TREATMENT,SIGNED RELEASE AMA,SEEN BY COUNSELOR Pertinent Past History: ROBLEDO PALSY HEPATITIS C FURUNCULOSIS NICOTINE DEPENDENCE WEIGHT LOSS - Physical Exam Results Vital Signs: Vital Signs Temperature 97.3 F L 12/08/17 11:19 Pulse Rate 78 12/08/17 11:19 Respiratory Rate 18 12/08/17 11:19 Blood Pressure 113/65 12/08/17 11:19 O2 Sat by Pulse Oximetry (%) Pertinent Admission Physical Exam Findings: WITHDRAWAL SIGN AND SYMPTOM Laboratory Last Values WBC 3.7 K/mm3 (4.0-10.0) L D 12/07/17 08:00 RBC 4.27 M/mm3 (4.00-5.60) 12/07/17 08:00 Hgb 12.4 GM/dL (11.7-16.9) 12/07/17 08:00 Hct 37.6 % (35.4-49) 12/07/17 08:00 MCV 88.0 fl (80-96) 12/07/17 08:00 MCH 29.1 pg (25.7-33.7) 12/07/17 08:00 MCHC 33.0 g/dl (32.0-35.9) 12/07/17 08:00 RDW 15.0 % (11.9-15.9) 12/07/17 08:00 Plt Count 191 K/MM3 (134-434) 12/07/17 08:00 MPV 8.8 fl (7.5-11.1) 12/07/17 08:00 Sodium 142 mmol/L (136-145) 12/07/17 08:00 Potassium 4.8 mmol/L (3.5-5.1) 12/07/17 08:00 Chloride 106 mmol/L (98-107) 12/07/17 08:00 Carbon Dioxide 31 mmol/L (21-32) 12/07/17 08:00 Anion Gap 5 (8-16) L 12/07/17 08:00 BUN 15 mg/dL (7-18) 12/07/17 08:00 Creatinine 0.9 mg/dL (0.7-1.3) D 12/07/17 08:00 Creat Clearance w eGFR > 60 (>60) 12/07/17 08:00 Random Glucose 96 mg/dL (74-106) 12/07/17 08:00 Calcium 9.0 mg/dL (8.5-10.1) 12/07/17 08:00 Total Bilirubin 0.3 mg/dL (0.2-1.0) 12/07/17 08:00 AST 23 U/L (15-37) D 12/07/17 08:00 ALT 27 U/L (12-78) D 12/07/17 08:00 Alkaline Phosphatase 71 U/L (45-117) 12/07/17 08:00 Total Protein 7.6 g/dl (6.4-8.2) 12/07/17 08:00 Albumin 3.6 g/dl (3.4-5.0) 12/07/17 08:00 Urine Color Yellow 12/07/17 00:28 Urine Appearance Turbid 12/07/17 00:28 Urine pH 5.0 (5.0-8.0) 12/07/17 00:28 Ur Specific [place] 1.031 (1.001-1.035) 12/07/17 00:28 Urine Protein Negative (NEGATIVE) 12/07/17 00:28 Urine Glucose (UA) Negative (NEGATIVE) 12/07/17 00:28 Urine Ketones Trace (NEGATIVE) H 12/07/17 00:28 Urine Blood Negative (NEGATIVE) 12/07/17 00:28 Urine Nitrite Negative (NEGATIVE) 12/07/17 00:28 Urine Bilirubin Negative (<2.0 mg/dL) 12/07/17 00:28 Urine Urobilinogen 2.0 mg/dL (0.2-1.0) 12/07/17 00:28 Ur Leukocyte Esterase Negative (NEGATIVE) 12/07/17 00:28 RPR Titer Nonreactive (NONREACTIVE) 12/07/17 08:00 Vital Signs Temperature 97.3 F L 12/08/17 11:19 Pulse Rate 78 12/08/17 11:19 Respiratory Rate 18 12/08/17 11:19 Blood Pressure 113/65 12/08/17 11:19 O2 Sat by Pulse Oximetry (%) - Medication Discharge Medications: Ambulatory Orders NK [No Known Home Medication] 10/17/17 - Diagnosis (1) Opioid dependence with withdrawal Current Visit: No Status: Acute (2) Uncomplicated sedative, hypnotic or anxiolytic withdrawal Current Visit: Yes Status: Acute (3) Cocaine dependence, uncomplicated Current Visit: No Status: Acute (4) Weight loss Current Visit: Yes Status: Acute (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
[2017-12-09] MEDS ORDERED: METHADONE HCL 5 MG TABLET (FOR DETOX USE ONLY) PO ONE (10:00)
[2017-12-10] MEDS ORDERED: METHADONE HCL 10 MG TABLET (FOR DETOX USE ONLY) PO ONE (10:00)
[2017-12-11] MEDS ORDERED: METHADONE HCL 5 MG TABLET (FOR DETOX USE ONLY) PO ONE (06:00)
== END 2017-12-08 12:44 | disposition left against medical advice (07) | DRG 770 ==
LOC: YASAS 11:45 → Y6N 16:14
PROVIDERS: ADMIT Internal Medicine; ATTEND Internal Medicine
PROC: HZ2ZZZZ Detoxification Services for Substance Abuse Treatment (ICD-10-PCS; principal; 2017-12-06)
DX: F11.23 Opioid dependence with withdrawal (principal); F13.230 Sedative, hypnotic or anxiolytic dependence with withdrawal, uncomplicated; F10.230 Alcohol dependence with withdrawal, uncomplicated; F14.20 Cocaine dependence, uncomplicated; F17.210 Nicotine dependence, cigarettes, uncomplicated; B18.2 Chronic viral hepatitis C; G51.0 Bell's palsy; L02.32 Furuncle of buttock; R63.4 Abnormal weight loss; Z68.22 Body mass index [BMI] 22.0-22.9, adult
CPT/HCPCS: 36415; 80053; 81003; 85027; 86593; 93005; 93010; J0735

== ENCOUNTER 2024-10-29 12:05 | Inpatient (IN) | payer OTHER ==
[2024-10-29 12:33] VITALS: BMI 24.0
[2024-10-29] MEDS ORDERED: guaiFENesin 600 MG TABLET.ER (FP) PO PRN (12:42)
[2024-10-29] MEDS ORDERED: LOPERAMIDE HCL 2 MG CAPSULE PO PRN (12:42)
[2024-10-29] MEDS ORDERED: NICOTINE POLACRILEX 2 MG GUM BUC PRN (12:42)
[2024-10-29] MEDS ORDERED: IBUPROFEN 400 MG TABLET (FP) PO PRN (12:42)
[2024-10-29] MEDS ORDERED: hydrOXYzine PAMOATE 25 MG CAPSULE (FP) PO PRN (12:42)
[2024-10-29] MEDS ORDERED: BENZONATATE 200 MG CAPSULE PO PRN (12:42)
[2024-10-29] MEDS ORDERED: ACETAMINOPHEN 325 MG TABLET (FP) PO PRN (12:42)
[2024-10-29] MEDS ORDERED: NALOXONE (NARCAN) HCL 4 MG/0.1 ML SPRAY NS PRN (12:42)
[2024-10-29] MEDS ORDERED: NICOTINE POLACRILEX 2 MG LOZENGE BC PRN (12:42)
[2024-10-29] MEDS ORDERED: BENZOCAINE/MENTHOL (CHLORASEPTIC ) LOZENGE MM PRN (12:42)
[2024-10-29] MEDS: CEPHALEXIN MONOHYDRATE 500 MG CAPSULE (UD) PO SCH (14:55)
[2024-10-29] MEDS: MELATONIN 5 MG TABLETS PO SCH (21:37)
[2024-10-29] MEDS: IBUPROFEN 600 MG TABLET (FP) PO PRN (21:37)
[2024-10-29] MEDS: THIAMINE 100 MG TABLET PO SCH (21:37)
[2024-10-29] MEDS: BACITRACIN 0.9 GM PACKET TP PRN (21:37)
[2024-10-29] MEDS: cloNIDine HCL 0.1 MG TABLET PO ONE (21:46)
[2024-10-30] MEDS ORDERED: methaDONE HCL 10 MG TABLET PO SCH (06:00)
[2024-10-30] MEDS: methaDONE 40 MG, methaDONE 10 MG PO SCH (06:01)
[2024-10-30] MEDS: PRENATAL VITAMINS W/ FOLIC ACID TABLET (FP) PO SCH (09:04)
[2024-10-30 09:37] LABS: POTASSIUM 4.1 mmol/L (3.5-5.1)
[2024-10-30 09:41] LABS: HEMATOCRIT 36.9 % (35.4-49); HEMOGLOBIN 11.8 GM/dL (11.7-16.9); MCH 28.6 pg (25.7-33.7); MCHC 32.1 g/dl (32.0-35.9); MEAN CELL VOLUME 89.2 fl (80-96); MEAN PLT VOLUME 9.4 fl (7.5-11.1); PLATELET COUNT 271 10^3/uL (134-434); RBC 4.14 M/mm3 (4.00-5.60); RDW 13.8 % (11.9-15.9); WHITE BLOOD COUNT 5.3 K/mm3 (4.0-10.0)
[2024-10-30 10:06] LABS: ALBUMIN 2.8 g/dl (3.4-5.0); CALCIUM 8.9 mg/dL (8.5-10.1)
[2024-10-30 10:07] LABS: BLOOD UREA NITROGEN 11.8 mg/dL (7-18)
[2024-10-30 10:09] LABS: CREATININE 0.8 mg/dL (0.55-1.3)
[2024-10-30 10:11] LABS: BILIRUBIN,TOTAL 0.4 mg/dL (0.2-1); TOT PROT 6.6 g/dl (6.4-8.2)
[2024-10-30] MEDS: POLYETHYLENE GLYCOL (HEALTHYLAX) 3350 17 GM PACKET PO PRN (11:09)
[2024-10-30 11:52] LABS: SYPHILIS W/ RPR CONF NON-REACTIVE (NONREACTIVE)
[2024-10-30] MEDS: MAGNESIUM HYDROX 2400MG/30ML ORAL SUSPENSION 30 ML CUP PO PRN (21:16)
[2024-10-31 11:26] LABS: PH,URINE 8.5 (5.0-8.0); URINE APPEARANCE TURBID; URINE BILIRUBIN NEGATIVE (NEGATIVE); URINE COLOR YELLOW; URINE GLUCOSE (UA) NEGATIVE (NEGATIVE); URINE KETONE NEGATIVE (NEGATIVE); URINE LEUK ESTERASE NEGATIVE (NEGATIVE); URINE NITRITE NEGATIVE (NEGATIVE); URINE PROTEIN NEGATIVE (NEGATIVE); URINE UROBILINOGEN 0.2 mg/dL (0.2-1.0)
[2024-10-31 11:34] LABS: EPI CELLS 4 /uL (0-25.1); HYALINE CASTS 0 /uL (0-3.1); URINE BACTERIA 1 /uL (0-1359); URINE RBC 9 /uL (0-23.9); URINE WBC 2 /uL (0-25.8)
[2024-11-01] MEDS: MAG HYDROX/AL HYDROX/SIMETH 30 ML UNIT-DOSE CUP PO PRN (09:56)
[2024-11-04] MEDS ORDERED: BUPRENORPHINE HCL 150 MCG, BUPRENORPHINE HCL 75 MCG BC PRN (11:39)
[2024-11-04] MEDS: BUPRENORPHINE HCL 150 MCG, BUPRENORPHINE HCL 75 MCG BC ONE (12:19)
[2024-11-04] MEDS: cloNIDine HCL 0.1 MG TABLET PO PRN (15:40)
[2024-11-04] MEDS: diazePAM 5 MG TABLET PO PRN (18:11)
[2024-11-04] MEDS: MIRTAZAPINE 15 MG TABLET (FP) PO SCH (21:24)
[2024-11-05] MEDS ORDERED: BUPRENORPHINE HCL 150 MCG, BUPRENORPHINE HCL 75 MCG BC PRN
[2024-11-05] MEDS: BUPRENORPHINE HCL 150 MCG, BUPRENORPHINE HCL 75 MCG BC SCH (05:37)
[2024-11-05] MEDS: methaDONE HCL 40 MG DISPERSABLE TABLET PO ONE (05:38)
[2024-11-05] MEDS ORDERED: MIRTAZAPINE 15 MG TABLET (FP) PO SCH (10:00)
[2024-11-06] MEDS: BUPRENORPHINE HCL 450 MCG FILM BC SCH (06:01)
[2024-11-06] MEDS: methaDONE HCL 10 MG TABLET PO ONE (10:19)
[2024-11-07] MEDS: BUPRENORPHINE/NALOXONE 4 MG/1 MG FILM PACKET SL SCH (05:21)
[2024-11-07] MEDS: OXYMETAZOLINE 0.05% NASAL SOLUTION 15 ML BOTTLE NS PRN (12:33)
[2024-11-07] MEDS: diazePAM 5 MG TABLET PO PRN (12:33)
[2024-11-08] MEDS ORDERED: methaDONE HCL 10 MG TABLET PO ONE (10:00)
[2024-11-08] MEDS: BUPRENORPHINE/NALOXONE 8 MG/2 MG FILM PACKET SL SCH (10:08)
[2024-11-09] MEDS ORDERED: DICYCLOMINE HCL 10 MG CAPSULE PO PRN (09:53)
[2024-11-09] MEDS ORDERED: BISMUTH SUBSALICYLATE 524 MG/30 ML PO PRN (09:53)
[2024-11-09] MEDS ORDERED: ONDANSETRON *ODT* 4 MG TABLET SL PRN (09:53)
[2024-11-09] MEDS ORDERED: guaiFENesin 600 MG TABLET.ER (FP) PO PRN (09:53)
[2024-11-09] MEDS ORDERED: BENZONATATE 200 MG CAPSULE PO PRN (09:53)
[2024-11-10 06:40] VITALS: RESP 18; TEMP 97.7
[2024-11-10] MEDS ORDERED: methaDONE HCL 10 MG TABLET PO ONE (10:00)
[2024-11-10] MEDS: BUPRENORPHINE/NALOXONE 8 MG/2 MG FILM PACKET SL SCH (10:44)
[2024-11-10] MEDS: hydrOXYzine PAMOATE 25 MG CAPSULE (FP) PO PRN (12:38)
[2024-11-10] MEDS ORDERED: BUPRENORPHINE/NALOXONE 8 MG/2 MG FILM PACKET SL SCH (14:00)
[2024-11-11 11:12] VITALS: BP 113/87; PULSE 90
== END 2024-11-11 10:19 | disposition left against medical advice (07) | DRG 772 ==
LOC: YASAS 12:05 → Y3NR 13:52 → Y3W 10-30 10:11
PROVIDERS: ADMIT Psychiatry & Neurology Pain Medicine; ATTEND Psychiatry & Neurology Pain Medicine
PROC: HZ42ZZZ Group Counseling for Substance Abuse Treatment, Cognitive-Behavioral (ICD-10-PCS; principal; 2024-10-29)
DX: F10.20 Alcohol dependence, uncomplicated (principal); F15.20 Other stimulant dependence, uncomplicated; F17.210 Nicotine dependence, cigarettes, uncomplicated; F41.9 Anxiety disorder, unspecified; F43.10 Post-traumatic stress disorder, unspecified; G47.00 Insomnia, unspecified; R56.9 Unspecified convulsions; F91.8 Other conduct disorders; Z99.89 Dependence on other enabling machines and devices; Z59.00 Homelessness unspecified; Z91.199 Patient's noncompliance with other medical treatment and regimen due to unspecified reason
CPT/HCPCS: 36415; 80053; 80305; 81003; 82962; 85027; 86780; 86803; 87522; 87811; 93005; 93010